=== PATIENT | male | born 1955 | race Caucasian/White ===

== ENCOUNTER 2016-09-17 16:43 | Emergency (ER) | payer OTHER ==
[~2016-09-17] VITALS: Ht 172.7 cm; Wt 81.6 kg
[~2016-09-17 16:43] MED LIST: ACETAMINOPHEN-1 EAC3 PO; CYCLOBENZAPRINE10 M1 PO; OXYCODONE5 M1 PO; PERCOCET 5-3251 EACH PO
[2016-09-17 16:49] VITALS: BP 107/70
--- NOTE | 2016-09-17 17:28 | ED UPPER/LOWER EXTREMITY COMPL ---
History of Present Illness General Chief Complaint: Foot or Ankle Injury Stated Complaint: L ANKLE PAIN (WORK INJURY) Source: patient Exam Limitations: no limitations Vital Signs & Intake/Output Vital Signs & Intake/Output Vital Signs Date Time Temp Pulse Resp B/P Pulse O2 O2 Flow FiO2 Ox Delivery Rate 09/17 1734 96.9 09/17 1649 96.9 89 14 107/70 100 Room Air Allergies Coded Allergies: NO KNOWN ALLERGIES (03/27/16) Reconcile Medications Acetaminophen With Codeine (Acetaminophen-Cod #3 Tablet) 1 EACH TABLET 1 TAB PO PRN PAIN (Reported) Triage Note: PT TO ED AFTER SLIPPING, FALLING AND TWISTING L ANKLE WHILE WORKING. DID NOT HIT HEAD. NO GROSS DEFORMITY NOTED, PAIN TO OUTSIDE OF L ANKLE ON PALPATION, +SENSATION, PULSES AND MOVEMENT. PT REFUSING PAIN MEDS IN TRIAGE, ICE PACK APPLIED FOR COMFORT. Triage Nurses Notes Reviewed? 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 Patient states ambulation and palpation and ankle movements make worse. Denies any knee pain or foot pain. No medications given prior to arrival. (MARISELA GARZA) Past History Travel History Traveled to [facility] past 21 day No Medical History Any Pertinent Medical History? see below for history Neurological: NONE EENT: NONE Cardiovascular: NONE Respiratory: NONE Gastrointestinal: NONE Hepatic: NONE Renal: NONE Musculoskeletal: chronic back pain Psychiatric: NONE Endocrine: NONE Blood Disorders: NONE Cancer(s): NONE ATTRACTION WORKER/Reproductive: NONE Surgical History Surgical History: non-contributory Psychosocial History What is your primary language Polish Tobacco Use: Never used ETOH Use: denies use Illicit Drug Use: denies illicit drug use Family History Hx Contributory? No (MARISELA GARZA) Review of Systems Review of Systems Constitutional: Reports: no symptoms. EENTM: Reports: no symptoms. Respiratory: Reports: no symptoms. Cardiovascular: Reports: no symptoms. Gastrointestinal/Abdominal: Reports: no symptoms. Genitourinary: Reports: no symptoms. Musculoskeletal: Reports: see HPI, joint pain, joint swelling. Skin: Reports: no symptoms. Neurological/Psychological: Reports: no symptoms. Hematologic/Endocrine: Reports: no symptoms. Immunological: Reports: no symptoms. All Other Systems: Reviewed and Negative (MARISELA GARZA) Physical Exam Physical Exam General Appearance: no apparent distress, alert, comfortable Neurologic/Tendon: normal sensation, normal motor functions, normal tendon functions, responds to pain, no evidence tendon injury, no pulse deficit Skin: intact, normal color, warm/dry Comments: Well-developed well-nourished no apparent distress. HEENT: Atraumatic, extraocular motion intact Neck: Supple, no lymphadenopathy Back: Nontender Respiratory: No respiratory distress Extremities: Left hip nontender full active range of motion Left knee nontender normal inspection full active range of motion Left ankle mild swelling, moderate lateral malleoli point tenderness for lack of range of motion with pain with dorsiflexion plantar flexion Left foot normal inspection nontender pedal pulse +2 Neuro: Alert and oriented x3 Psych: Mood affect normal, normal memory normal judgment. (MARISELA GARZA) Progress Differential Diagnosis: arterial insufficiency, compartment syndrome, contusion, dislocation, DVT, fracture, gout, septic arthritis, sprain, tendon injury Plan of Care: Orders Procedure Date/time Status Durable Medical Equipment 09/17 1730 Active No osseous injury noted on x-rays. Mike wrap was applied and air cast stirrup was applied pre-and post-neurovascular was intact. Crutches were advised for weightbearing as tolerated status (MARISELA GARZA) Diagnostic Imaging: Viewed by Me: Radiology Read. Radiology Impression: no fracture Comments: PATIENT: YOLANDA JUAREZ PRESENT AGE: 60 PATIENT ACCOUNT NO: [id number] : 54 LOCATION: [facility] ORDERING PHYSICIAN: LIBORIO MITCHELL DO SERVICE DATE: 09/17/16 EXAM TYPE: RAD - XRY-ANKLE 3 OR MORE VIEWS L EXAMINATION: XR ANKLE, LEFT CLINICAL INFORMATION: Left ankle pain following fall. COMPARISON: None. TECHNIQUE: AP, lateral, and mortise views of the left ankle. FINDINGS: The bones and soft tissues appear unremarkable. No acute fracture or dislocation of the left ankle. The ankle mortise is intact. No significant anterior or posterior ankle joint effusion is identified. Incidental note is made of a small inferior calcaneal heel spur at the site of insertion of the plantar aponeurosis. IMPRESSION: No acute fracture or dislocation of the left ankle. (MARISELA GARZA) Departure Departure Disposition: HOME OR SELF CARE Condition: Stable Clinical Impression Primary Impression: Left ankle sprain Referrals: William LANGE MD (PCP/Family) CALIXTO MERCHANT,XI Additional Instructions: As discussed begin [id number] ibuprofen 3 tablets of 200 mg every 8 hours for pain and inflammation. Continue home medications as directed. Begin to elevate THE foot for swelling begin to ice the area directly 20 minutes every 2 hours and begin to use the Mike wrap and ankle Aircast her up for swelling and support. If no better and one-week follow-up with orthopedic Dr. Zheng. If symptoms worsen return to emergency room. Begin using crutches and to you walk without pain Departure Forms: Customer Survey General Discharge Information (MARISELA GARZA) PA/CRANE OPERATOR CAB Co-Sign Statement Statement: ED Attending supervision documentation- x I saw and evaluated the patient. I have also reviewed all the pertinent lab results and diagnostic results. I agree with the findings and the plan of care as documented in the PA's/CRANE OPERATOR CAB's documentation. [] I have reviewed the ED Record and agree with the PA's/CRANE OPERATOR CAB's documentation. [] Additions or exceptions (if any) to the PAs/CRANE OPERATOR CAB's note and plan are summarized below: [] (NORA MERCHANT,DONALDO)
== END 2016-09-17 18:00 ==
LOC: ERH 16:43
DX: S93.402A Sprain of unspecified ligament of left ankle, initial encounter (principal); W18.09XA Striking against other object with subsequent fall, initial encounter
CPT/HCPCS: 73610-LT